=== PATIENT | male | born 1980 ===

== ENCOUNTER 2024-12-02 02:01 | Emergency (ER) | payer OTHER ==
[2024-12-02] MEDS: Diphtheria,Pertussis(Acell),Tetanus Vaccine 0.5 ML Syringe IM ONE (02:24)
[2024-12-02] MEDS: Bacitracin Oint 1 GM U/D Packet TOP ONE (03:14)
== END 2024-12-02 03:52 | disposition home or self-care (01) ==
LOC: LL.ED 02:01
DX: S61.411A Laceration without foreign body of right hand, initial encounter (principal); I10 Essential (primary) hypertension; W22.8XXA Striking against or struck by other objects, initial encounter; Z23 Encounter for immunization
CPT/HCPCS: 12002; 73120; 90471; 90715; 99283; A9270; J0665; J2003